=== PATIENT | female | born 1970 | race Caucasian/White ===

== ENCOUNTER 2016-08-12 00:37 | Inpatient (IN) | payer MEDICAID ==
[~2016-08-12] VITALS: Ht 167.6 cm; Wt 93.2 kg
[2016-08-12 04:57] LABS: PLATELET COUNT 399 x10^3mcL (130-400); RED CELL DISTRIBUTION WIDTH 13.6 % (11.5-14.5)
[2016-08-12 05:20] LABS: ALBUMIN 3.4 g/dL (3.4-5.0); ALKALINE PHOSPHATASE 70 U/L (46-116); ALT/SGPT 18 U/L (14-59); AMYLASE 55 U/L (25-115); AST/SGOT 12 U/L (15-37); BILIRUBIN TOTAL 0.1 mg/dL (0.20-1.00); CALCIUM 8.4 mg/dL (8.5-10.1); CARBON DIOXIDE 23.2 mmol/L (21-32); CHLORIDE SERUM 105 mmol/L (98-107); CHOLESTEROL 152 mg/dL (<200); CHOLESTEROL/HDL RATIO 3.7; CREATININE SERUM 0.9 mg/dL (0.6-1.0); GFR1 > 60 mL/min; GLUCOSE SERUM 181 mg/dL (74-106); HDL CHOLESTEROL 41 mg/dL (40-60); LIPASE 119 IU/L (73-393); MAGNESIUM 1.8 mg/dL (1.8-2.4); SODIUM SERUM 140 mmol/L (136-145); T3 TOTAL 0.85 ng/mL; TOTAL PROTEIN, SERUM 7.4 g/dL (6.4-8.2); TRIGLYCERIDES 83 mg/dL (<150)
[2016-08-12 05:27] LABS: FREE T4 0.99 ng/dL (0.76-1.46); FREE THYROXINE INDEX 2.1 ug/dL (1.4-4.5); T4(THYROXINE) 6.1 ug/dL (4.7-13.3)
[2016-08-12 05:28] VITALS: BP 135/79
[2016-08-12 05:33] LABS: BAND NEUTROPHIL 3 % (0-10); METAMYELOCTE 1 % (0-2); MONOCYTE 1 % (0-7); SEGMENTED NEUTROPHILS 91 % (37-75)
[2016-08-12 05:35] LABS: PLATELET MORPHOLOGY FEW LARGE PLATELETS; rbc morphology (normal/abnorm) NORMAL (NORMAL)
[2016-08-12 07:11] VITALS: BP 135/79
[2016-08-12 10:38] VITALS: BP 124/70
[2016-08-12 13:34] VITALS: BP 130/72
[2016-08-12 17:51] VITALS: BP 110/56
[2016-08-12 21:18] VITALS: BP 113/58
[2016-08-13 05:29] VITALS: BP 114/58
[2016-08-13 06:52] LABS: PLATELET COUNT 369 x10^3mcL (130-400); RED CELL DISTRIBUTION WIDTH 13.9 % (11.5-14.5)
[2016-08-13 07:03] LABS: CALCIUM 8.1 mg/dL (8.5-10.1); CARBON DIOXIDE 23.6 mmol/L (21-32); CHLORIDE SERUM 110 mmol/L (98-107); CREATININE SERUM 0.7 mg/dL (0.6-1.0); GFR1 > 60 mL/min; GLUCOSE SERUM 162 mg/dL (74-106); POTASSIUM SERUM 4.3 mmol/L (3.5-5.1); SODIUM SERUM 142 mmol/L (136-145)
[2016-08-13 09:52] VITALS: BP 115/62
[2016-08-13 13:12] VITALS: BP 109/61
[2016-08-13 13:23] LABS: BAND NEUTROPHIL 4 % (0-10); BASOPHIL 0 % (0-2); MONOCYTE 2 % (0-7); PLATELET MORPHOLOGY PLATELETS INCREASED; SEGMENTED NEUTROPHILS 91 % (37-75); rbc morphology (normal/abnorm) ABNORMAL (NORMAL)
[2016-08-13 18:28] VITALS: BP 107/56
[2016-08-13 18:30] LABS: microscopic required? YES; urine erythrocyte 1+ (NEGATIVE)
[2016-08-13 18:41] LABS: AMPHETAMINE QUAL UR NONE DETECTED (NEG <=1000)
[2016-08-13 21:56] VITALS: BP 121/70
[2016-08-14 06:10] VITALS: BP 125/66
[2016-08-14 06:15] LABS: PLATELET COUNT 353 x10^3mcL (130-400); RED CELL DISTRIBUTION WIDTH 14.1 % (11.5-14.5)
[2016-08-14 06:25] LABS: CALCIUM 7.8 mg/dL (8.5-10.1); CARBON DIOXIDE 25.9 mmol/L (21-32); CHLORIDE SERUM 107 mmol/L (98-107); CREATININE SERUM 0.7 mg/dL (0.6-1.0); GFR1 > 60 mL/min; GLUCOSE SERUM 142 mg/dL (74-106); POTASSIUM SERUM 4.1 mmol/L (3.5-5.1); SODIUM SERUM 141 mmol/L (136-145)
[2016-08-14 06:27] LABS: BASOPHIL % 0 % (0-2)
[2016-08-14 09:52] VITALS: BP 117/59
[2016-08-14 10:35] VITALS: BP 117/59
[2016-08-14] MEDS ORDERED: MEDDP PO (11:09)
[2016-08-14] MEDS ORDERED: BEN25 PO (11:51)
[2016-08-14 13:14] VITALS: BP 124/70
[2016-08-14 18:02] VITALS: BP 123/72
[2016-08-15] MEDS ORDERED: LEVAQUIN750 MG PO (11:15)
[2016-08-15] MEDS ORDERED: LAC PO (11:15)
== END 2016-08-14 18:10 | disposition home or self-care (01) | DRG 811 ==
LOC: ED 00:37 → DU 04:23 → MU 08-13 21:12
PROVIDERS: Family Medicine; ADMIT Family Medicine
PROC: 0JBR0ZZ Excision of Left Foot Subcutaneous Tissue and Fascia, Open Approach (ICD-10-PCS; principal; 2016-08-13)
DX: T78.04XA Anaphylactic reaction due to fruits and vegetables, initial encounter (principal); E87.8 Other disorders of electrolyte and fluid balance, not elsewhere classified; J45.901 Unspecified asthma with (acute) exacerbation; L97.521 Non-pressure chronic ulcer of other part of left foot limited to breakdown of skin; E83.39 Other disorders of phosphorus metabolism; E87.6 Hypokalemia; R73.03 Prediabetes; L88 Pyoderma gangrenosum; D64.9 Anemia, unspecified; F41.9 Anxiety disorder, unspecified; D72.829 Elevated white blood cell count, unspecified; E66.9 Obesity, unspecified; Z68.33 Body mass index [BMI] 33.0-33.9, adult
CPT/HCPCS: 82962; 83880; 84439; 94150; J0171; J1200; J2920; J2930; J3490; J7030; J7613; J7620; Q0092